=== PATIENT | male | born 1970 | race Hispanic/Latino ===

== ENCOUNTER 2017-09-29 11:02 | Emergency (ER) | payer BC ==
[2017-09-29 11:21] VITALS: BMI 22.9
[2017-09-29 11:26] VITALS: TEMP 98.1
--- NOTE | 2017-09-29 11:55 | ED PDOC ---
Arrival/HPI - General Chief Complaint: Trauma Time Seen by Provider: 09/29/17 11:18 Historian: Patient - History of Present Illness Narrative History of Present Illness (Text): 09/29/17 11:28 A 47 year old male, whose past medical history includes scoliosis, presents to the emergency department complaining of right hip and leg pain s/p fall. Patient reports he was touring a building and walking downstairs as he was viewing to ceiling lights. Patient missed a step and fell backwards 2 steps. States landing onto right side and rolled onto left side after attempting to grab hand railing to stop himself from falling. Patient denies any head trauma or LOC. Patient reports that he initially also had some L shoulder pain with movement but reports that that resolved this morning after a warm shower. PMD: Dr. Judd West Past Medical History - Provider Review Nursing Documentation Reviewed: Yes - Cardiac Hx Cardiac Disorders: Yes Other/Comment: Palpitations - Pulmonary Hx Respiratory Disorders: No - Neurological Hx Seizures: Yes (Last seizure at age 11) - HEENT Hx HEENT Disorder: No - Renal Hx Renal Disorder: No - Endocrine/Metabolic Hx Endocrine Disorders: No - Hematological/Oncological Hx Blood Disorders: No - Integumentary Hx Dermatological Disorder: No - Musculoskeletal/Rheumatological Hx Musculoskeletal Disorders: Yes Hx Falls: No Other/Comment: scoliosis - Gastrointestinal Hx Gastrointestinal Disorders: No - Genitourinary/Gynecological Hx Genitourinary Disorders: No - Psychiatric Hx Psychophysiologic Disorder: No Hx Substance Use: No - Surgical History Hx Tonsillectomy: Yes Other/Comment: adnoidectomy - Suicidal Assessment Feels Threatened In Home Enviroment: No Family/Social History - Physician Review Nursing Documentation Reviewed: Yes Family/Social History: No Known Family HX Smoking Status: Never Smoked Hx Alcohol Use: No Hx Substance Use: No Hx Substance Use Treatment: No Allergies/Home Meds Allergies/Adverse Reactions: Allergies No Known Allergies Allergy (Verified 09/29/17 11:21) Home Medications: Home Meds Medication Instructions Recorded Confirmed No Known Home Med 09/29/17 09/29/17 Review of Systems - Physician Review All systems were reviewed & negative as marked: Yes - Review of Systems Constitutional: absent: Fatigue, Weight Change, Other (no head trauma) Respiratory: absent: SOB Cardiovascular: absent: Chest Pain, Palpitations Gastrointestinal: absent: Abdominal Pain, Constipation, Diarrhea, Nausea, Vomiting Genitourinary Male: absent: Dysuria Musculoskeletal: Arthralgias, Other (right side hip and leg pain) Neurological: absent: Headache, Dizziness, Focal Weakness, Gait Changes, Other ( no LOC) Physical Exam Vital Signs Reviewed: Yes Vital Signs Temp Pulse Resp BP Pulse Ox 09/29/17 13:07 82 18 126/79 99 09/29/17 11:24 98.1 F 87 17 136/91 H 97 Temperature: Afebrile Blood Pressure: Normal Pulse: Regular Respiratory Rate: Normal Appearance: Positive for: Well-Appearing Pain Distress: None Mental Status: Positive for: Alert and Oriented X 3 - Systems Exam Head: Present: Atraumatic, Normocephalic Pupils: Present: PERRL Extroacular Muscles: Present: EOMI Conjunctiva: Present: Normal Mouth: Present: Moist Mucous Membranes Neck: Present: Normal Range of Motion Respiratory/Chest: Present: Clear to Auscultation, Good Air Exchange. No: Respiratory Distress, Accessory Muscle Use, Other (no chest wall tenderness) Cardiovascular: Present: Regular Rate and Rhythm, Normal S1, S2. No: Murmurs Abdomen: Present: Normal Bowel Sounds. No: Tenderness, Distention, Peritoneal Signs Back: Present: Paraspinal Tenderness (some paraspinal lumbar tenderness consistent with associated muscle spasms). No: CVA Tenderness, Midline Tenderness, Pain with Leg Raise Upper Extremity: Present: Normal Inspection, NORMAL PULSES, Neurovascularly Intact, Temperature Abnormalties. No: Normal ROM (no full ROM or strength), Tenderness, Swelling Lower Extremity: Present: Normal Inspection, NORMAL PULSES, Other (abrasion to right femur with scant tenderness; left leg normal inspection, no bony hip tenderness). No: Edema, CALF TENDERNESS, Normal ROM (no full ROM or strength ) , Swelling Neurological: Present: GCS=15, CN II-XII Intact, Speech Normal, Gait Normal Skin: Present: Warm, Dry, Normal Color. No: Rashes Psychiatric: Present: Alert, Oriented x 3, Normal Insight, Normal Concentration Medical Decision Making ED Course and Treatment: 09/29/17 11:32 Impression: 47 year old male with right hip and leg pain. Physical exam shows no midline tenderness to back, some paraspinal lumbar tenderness with associated muscle spasms; no bony tenderness to hips bilaterally; full ROM and strength with steady gait; no chest wall tenderness. Plan: -- Right Femur X-Ray -- Bilateral Hip X-Ray -- Toradol -- Reassess and disposition Progress Notes: 09/29/17 12:55 Xray negative for fracture. Only abrasion is to R leg, which was under pants that were not cut. No skin contact with metal. Refusing tetanus shot. 09/29/2017 13:12 Femur X-Ray IMPRESSION: Unremarkable radiographs fo the right femur. Dictator: Jaison Montenegro MD 09/29/2017 13:27 Hip/Pelvis X-Ray IMPRESSION: Unremarkable radiographs of the hips and pelvis. Dictator: Jaison Montenegro MD - RAD Interpretation Radiology Orders: 09/29/17 11:29 Femur Right [FEMUR MIN 2 VIEWS RT] [RAD] Stat HIP MIN 2V W/ PELVIS EDWARD [RAD] Stat - Medication Orders Current Medication Orders: Discontinued Medications Ketorolac Tromethamine (Toradol) 30 mg IM STAT STA Stop: 09/29/17 11:31 Last Admin: 09/29/17 11:40 Dose: 30 mg MAR Pain Assessment Document 09/29/17 11:40 GMD (Rec: 09/29/17 11:40 GMD [facility] [id number]) Pain Reassessment Is this a pain reassessment? No Sleep Is patient sleeping during reassessment? No Presence of Pain Presence of Pain Yes IM Administration Charges Document 09/29/17 11:40 GMD (Rec: 09/29/17 11:40 GMD [facility] [id number]) Injection Site MAR Injection Site Right Deltoid Charges for Administration # of IM Administrations 1 - Scribe Statement The provider has reviewed the documentation as recorded by the Starla Andres Provider Scribe Attestation: All medical record entries made by the Scribe were at my direction and personally dictated by me. I have reviewed the chart and agree that the record accurately reflects my personal performance of the history, physical exam, medical decision making, and the department course for this patient. I have also personally directed, reviewed, and agree with the discharge instructions and disposition. Disposition/Present on Arrival - Present on Arrival Any Indicators Present on Arrival: No History of DVT/PE: No History of Uncontrolled Diabetes: No Urinary Catheter: No History of Decub. Ulcer: No History Surgical Site Infection Following: None - Disposition Have Diagnosis and Disposition been Completed?: Yes Diagnosis: Hip pain, Leg abrasion Disposition: HOME/ ROUTINE Disposition Time: 12:57 Patient Plan: Discharge Condition: GOOD Discharge Instructions (ExitCare): Contusion in Adults (DC), Hip Contusion (ED) Additional Instructions: Follow-up with PMD within 2 days for further evaluation. Return to ED if condition worsens. Rest and ice. Motrin or tylenol for pain. Referrals: Judd West MD [Primary Care Provider] - Follow up with primary Forms: [email or web address] (Faroese), WORK NOTE
[2017-09-29 13:08] VITALS: BP 126/79; PULSE 82; RESP 18; O2SAT 99
--- NOTE | 2017-09-29 13:14 | RAD ---
PROCEDURE: Right Femur Radiographs. HISTORY: R femur pain after fall COMPARISON: None. TECHNIQUE: AP and Lateral Radiographs of the right femur. FINDINGS: FEMUR: Normal. No fracture. SOFT TISSUES: Normal. OTHER FINDINGS: None. IMPRESSION: Unremarkable radiographs of the right femur.
--- NOTE | 2017-09-29 13:29 | RAD ---
PROCEDURE: Radiographs of the pelvis and bilateral hips HISTORY: R hip pain after fall COMPARISON: None. FINDINGS: BONES: Pelvis: Unremarkable. Right hip:Unremarkable. Left hip:Unremarkable. JOINTS: Right hip: Unremarkable. Left hip: Unremarkable. Sacroiliac Joints: Unremarkable. Pubic symphysis: Unremarkable. SOFT TISSUES: Normal. OTHER FINDINGS: None. IMPRESSION: Unremarkable radiographs of the hips and pelvis.
== END 2017-09-29 13:09 | disposition home or self-care (01) ==
LOC: ED 11:02
DX: M25.551 Pain in right hip (principal); S80.811A Abrasion, right lower leg, initial encounter; W10.9XXA Fall (on) (from) unspecified stairs and steps, initial encounter; Y92.89 Other specified places as the place of occurrence of the external cause
CPT/HCPCS: 73521; 73552; 96372; 99285; J1885

== ENCOUNTER 2017-11-07 15:58 | Emergency (ER) | payer BC ==
[2017-11-07 15:58] VITALS: BMI 22.9
[2017-11-07 16:42] VITALS: RESP 18; TEMP 98.4
[2017-11-07 16:47] LABS: URINE BILIRUBIN NEGATIVE (NEGATIVE); URINE BLOOD TRACE-INTACT (NEGATIVE); URINE GLUCOSE (UA) NEGATIVE (NEGATIVE); URINE LEUKOCYTE ESTERASE NEGATIVE Leu/uL (NEGATIVE); URINE PROTEIN NEGATIVE mg/dL (<30 mg/dL); URINE UROBILINOGEN 0.2 E.U./dL (<1 E.U./dL)
--- NOTE | 2017-11-07 16:47 | ED PDOC ---
Arrival/HPI - General Historian: Patient - History of Present Illness Time/Duration: > week - General Chief Complaint: Back Pain Time Seen by Provider: 11/07/17 16:04 - History of Present Illness Narrative History of Present Illness (Text): 11/07/17 16:40 47M w/ pmhx of childhood scoliosis that presents w/ intermittent Right sided sharp burning low back pain that started 1 week ago. Pain has been progressively getting worse and is now a 6/10 that is consistent. Pain is better when supine and at rest, worse with walking. No previous episodes of pain like this in the past Denies recent trauma, incontinence, numbness/tingling in extremities, changes in bowel or bladder habits, blood in urine, pain or burning w/ urination, fevers , chills, chest pain, shortness of breath PMH: Splenic infarct PSH: Denies ALL: NKDA SocialHx: denies tobacco, etoh, recreational drug use (Benitot,[place]ong) Past Medical History - Provider Review Nursing Documentation Reviewed: Yes - Travel History Have you recently traveled outside [place] w/in the past 3 mons?: No - Infectious Disease Hx of Infectious Diseases: None - Cardiac Hx Cardiac Disorders: Yes Other/Comment: Palpitations - Pulmonary Hx Respiratory Disorders: No - Neurological Hx Seizures: Yes (Last seizure at age 11) - HEENT Hx HEENT Disorder: No - Renal Hx Renal Disorder: No - Endocrine/Metabolic Hx Endocrine Disorders: No - Hematological/Oncological Hx Blood Disorders: No - Integumentary Hx Dermatological Disorder: No - Musculoskeletal/Rheumatological Hx Musculoskeletal Disorders: Yes Hx Falls: No Other/Comment: scoliosis - Gastrointestinal Hx Gastrointestinal Disorders: No - Genitourinary/Gynecological Hx Genitourinary Disorders: No - Psychiatric Hx Psychophysiologic Disorder: No Hx Substance Use: No - Surgical History Hx Tonsillectomy: Yes Other/Comment: adnoidectomy - Anesthesia Hx Anesthesia: Yes Hx Anesthesia Reactions: No - Suicidal Assessment Feels Threatened In Home Enviroment: No Family/Social History - Physician Review Nursing Documentation Reviewed: Yes Family/Social History: Other (non-contributory) Smoking Status: Never Smoked Hx Alcohol Use: No Hx Substance Use: No Hx Substance Use Treatment: No Allergies/Home Meds Allergies/Adverse Reactions: Allergies No Known Allergies Allergy (Verified 09/29/17 11:21) Review of Systems - Physician Review All systems were reviewed & negative as marked: Yes - Review of Systems Constitutional: absent: Weight Change, Fevers, Night Sweats Eyes: absent: Vision Changes, Photophobia ENT: absent: Hearing Changes, Tinnitus Respiratory: absent: SOB, Cough Cardiovascular: absent: Chest Pain, Palpitations, Edema Gastrointestinal: absent: Abdominal Pain, Stool Changes Genitourinary Male: absent: Dysuria, Frequency, Hematuria, Urinary Output Changes Musculoskeletal: Back Pain (Right sided low back pain). absent: Neck Pain Skin: absent: Rash, Pruritis, Skin Lesions Neurological: absent: Headache, Dizziness, Focal Weakness Endocrine: absent: Diaphoresis Physical Exam Vital Signs Reviewed: Yes Temperature: Afebrile Blood Pressure: Normal Pulse: Regular Respiratory Rate: Normal Appearance: Positive for: Well-Appearing, Non-Toxic, Comfortable Pain Distress: None Mental Status: Positive for: Alert and Oriented X 3 - Systems Exam Head: Present: Atraumatic, Normocephalic Pupils: Present: PERRL Extroacular Muscles: Present: EOMI Conjunctiva: Present: Normal Mouth: Present: Moist Mucous Membranes Neck: Present: Normal Range of Motion Respiratory/Chest: Present: Clear to Auscultation, Good Air Exchange. No: Respiratory Distress, Accessory Muscle Use Cardiovascular: Present: Regular Rate and Rhythm, Normal S1, S2. No: Murmurs Abdomen: No: Tenderness, Distention, Peritoneal Signs, Guarding Back: Present: Normal Inspection, CVA Tenderness (Right side), Paraspinal Tenderness, Other (Negative Agustin, Negative SLR, Neagtive Bonnets- bilateral). No: Midline Tenderness, Pain with Leg Raise, Decubitus Ulcer Upper Extremity: Present: Normal Inspection. No: Edema Lower Extremity: Present: Normal Inspection. No: Edema, CALF TENDERNESS Neurological: Present: GCS=15. No: Speech Normal Skin: Present: Warm. No: Normal Color Psychiatric: Present: Alert, Oriented x 3 Vital Signs Temp Pulse Resp BP Pulse Ox 11/07/17 16:41 98.4 F 68 18 128/87 98 11/07/17 16:03 98.9 F 88 16 144/87 98 11/07/17 15:58 98.9 F 88 16 144/87 98 Medical Decision Making - Lab Interpretations I have reviewed the lab results: Yes Interpretation: No clinic. lab abnormalty - RAD Interpretation Transport Truck Driver: Radiologist ED Course and Treatment: 11/07/17 17:00 Seen and examined with the resident. Our history and physical exam reveals a gentleman complaining of approximately a one-week history of right lower back pain with radiation towards his right hip and groin. No injury or trauma. No abdominal pain nausea vomiting or diarrhea. No genitourinary symptoms. No fever or chills. He fell approximately 5 weeks ago with an injury to his right hip, but that has completely resolved. He does not appear to be in severe distress. ( Dewayne Velez) 11/07/17 16:54 Nephrolithiasis vs Lower Back Pain MSK somatic dysfunction CBC/CMP UA CT w/o contrast Pain control PRN Reassess and Dispo 11/07/17 18:03 CT scan shows no signs of nephrolithiasis WBC WNL No chemistry abnormalities UA- no signs of acute infection Cleared for discharge on flexeril and motrin follow up w/ PMD for further evaluation (Hong Pierre) - Lab Interpretations Narrative Lab Interpretation (Text): 11/07/17 18:05 WBC- WNL No chemistry abnormalities UA- no signs of active infection (Hong Pierre) Lab Results: 11/07/17 16:45 11/07/17 16:45 Lab Results 11/07/17 16:45: Sodium 143, Potassium 4.1, Chloride 102, Carbon Dioxide 31, Anion Gap 14, BUN 17, Creatinine 1.1, Est GFR ( Amer) > 60, Est GFR (Non- Af Amer) > 60, Random Glucose 98, Calcium 10.2, Total Bilirubin 0.4, AST 24, ALT 32, Alkaline Phosphatase 87, Total Protein 8.3, Albumin 4.3, Globulin 4.0, Albumin/Globulin Ratio 1.1 11/07/17 16:45: WBC 6.8, RBC 4.74, Hgb 14.7, Hct 43.9, MCV 92.6, MCH 31.0, MCHC 33.5, RDW 12.7, Plt Count 324, MPV 9.6, Gran % 70.9 H, Lymph % (Auto) 22.9, [place] % (Auto) 5.3, Eos % (Auto) 0.3 L, Baso % (Auto) 0.6, Gran # 4.82, Lymph # ( Auto) 1.6, [place] # (Auto) 0.4, Eos # (Auto) 0.0, Baso # (Auto) 0.04 11/07/17 16:31: Urine Color Light yellow, Urine Appearance Clear, Urine pH 6.0, Ur Specific [place] >= 1.030, Urine Protein Negative, Urine Glucose (UA) Negative, Urine Ketones Negative, Urine Blood Trace-intact H, Urine Nitrate Negative, Urine Bilirubin Negative, Urine Urobilinogen 0.2, Ur Leukocyte Esterase Negative, Urine RBC 2 - 5, Urine WBC 2 - 5, Ur Epithelial Cells 1 - 3, Calcium Oxalate Crystal Small, Urine Bacteria Many, Urine Other Mucus - RAD Interpretation Narrative RAD Interpretations (Text): LOWER THORAX: Unremarkable. LIVER: Unremarkable. No gross lesion or ductal dilatation. GALLBLADDER AND BILE DUCTS: Unremarkable. PANCREAS: Unremarkable. No gross lesion or ductal dilatation. SPLEEN: Unremarkable. ADRENALS: Unremarkable. No mass. KIDNEYS AND URETERS: Unremarkable. No hydronephrosis. No solid mass. Incidental finding(s): Simple cyst lower pole right kidney unchanged VASCULATURE: Unremarkable. No aortic aneurysm. BOWEL: Unremarkable. No obstruction. No gross mural thickening. APPENDIX: Unremarkable. Normal appendix. PERITONEUM: Unremarkable. No free fluid. No free air. LYMPH NODES: Unremarkable. No enlarged lymph nodes. BLADDER: Unremarkable. REPRODUCTIVE: Unremarkable. BONES: No acute fracture. Thoracolumbar scoliosis, secondary degenerative change at multiple levels. Unchanged compared to prior study. IMPRESSION: No acute findings related to/accounting for the clinical presentation. Additional benign and/or incidental findings described above. No significant interval change compared to the prior examination(s) (Hong Pierre) Radiology Orders: 11/07/17 16:33 ABD & PELVIS W/O PO OR IV CONT [CT] Stat - Medication Orders Current Medication Orders: Discontinued Medications Ketorolac Tromethamine (Toradol) 30 mg IVP STAT STA Stop: 11/07/17 16:34 Last Admin: 11/07/17 16:48 Dose: 30 mg NASH Pain Assessment Document 11/07/17 16:48 SRE (Rec: 11/07/17 16:48 SRE [id number]) Pain Reassessment Is this a pain reassessment? Yes Sleep Is patient sleeping during reassessment? No Presence of Pain Presence of Pain Yes Pain Scale Used Pain Scale Used Numeric Location Upper or Lower Lower Pain Location Body Site Back Description Description Constant IVP Administration Document 11/07/17 16:48 SRE (Rec: 11/07/17 16:48 SRE [id number]) Charges for Administration # of IVP Administrations 1 - PA / [employer] / Resident Statement / has reviewed & agrees with the documentation as recorded. / has examined the patient and agrees with the treatment plan. Disposition/Present on Arrival - Present on Arrival Any Indicators Present on Arrival: No History of DVT/PE: No History of Uncontrolled Diabetes: No Urinary Catheter: No History of Decub. Ulcer: No History Surgical Site Infection Following: None - Disposition Have Diagnosis and Disposition been Completed?: Yes Disposition Time: 18:05 Patient Plan: Discharge - Disposition Diagnosis: Lower back pain Disposition: HOME/ ROUTINE Patient Problems: Current Active Problems Problem Status Onset Lower back pain Acute Condition: STABLE Discharge Instructions (ExitCare): Low Back Pain (DC) Additional Instructions: Thank you for letting us take care of you today. You were treated for MSK lower back pain. The emergency medical care you received today was directed at your acute symptoms. If you were prescribed any medication, please fill it and take as directed. It may take several days for your symptoms to resolve. Return to the Emergency Department if your symptoms worsen, do not improve, or if you have any other problems. CT scan of ABD and Pelvis shows no new or Acute changes in the Kidneys or spine. Please contact your doctor or call one of the physicians/clinics you have been referred to that are listed on the Patient Visit Information form that is included in your discharge packet. Bring any paperwork you were given at discharge with you along with any medications you are taking to your follow up visit. Our treatment cannot replace ongoing medical care by a primary care provider (PCP) outside of the emergency department. Thank you for allowing the [facility] team to be part of your care today. Prescriptions: Cyclobenzaprine [Flexeril] 5 mg PO TID PRN #30 tab PRN Reason: Pain, Moderate (4-7) Ibuprofen [Motrin Tab] 800 mg PO Q8 PRN #15 tab PRN Reason: Pain, Moderate (4-7) Referrals: Judd West MD [Primary Care Provider] - Follow up with primary Forms: [employer] (Bulgarian)
[2017-11-07 16:49] LABS: URINE APPEARANCE CLEAR (CLEAR); URINE COLOR LIGHT YELLOW (YELLOW)
[2017-11-07 17:05] LABS: BASO # 0.04 K/mm3 (0.0-2.0); BASO % 0.6 % (0.0-3.0); EOS % 0.3 % (1.5-5.0); GRAN # 4.82 (1.4-6.5); GRAN % 70.9 % (50.0-68.0); HEMOGLOBIN 14.7 g/dL (14.0-18.0); LYMPH # 1.6 (1.2-3.4); LYMPH % 22.9 % (22.0-35.0); MEAN CELL VOLUME 92.6 fl (80.0-105.0); MEAN CORPUSCULAR HGB CONC 33.5 g/dl (31.0-37.0); MEAN PLATELET VOLUME 9.6 fl (7.0-11.0); MONO # 0.4 (0.1-0.6); MONO % 5.3 % (1.0-6.0); RBC 4.74 10^6/uL (3.5-6.1); RED CELL DISTRIBUTION WIDTH 12.7 % (11.5-14.5); WHITE BLOOD COUNT 6.8 10^3/ul (4.5-11.0)
[2017-11-07 17:19] LABS: ALB/GLOB RATIO 1.1 (1.1-1.8); ALBUMIN 4.3 g/dL (3.0-4.8); ALT/SGPT 32 U/L (7-56); AST/SGOT 24 U/L (17-59); BLOOD UREA NITROGEN 17 mg/dL (7-21); CALCIUM 10.2 mg/dL (8.4-10.5); GFR AFRICAN-AMERICAN > 60; GFR NON-AFRICAN AMERICAN > 60
[2017-11-07 17:36] LABS: URINE BACTERIA MANY (NEG)
--- NOTE | 2017-11-07 17:39 | CT ---
PROCEDURE: CT Abdomen and Pelvis without intravenous contrast HISTORY: Right side LBP COMPARISON: 11/13/2013 CT abdomen and pelvis TECHNIQUE: Technique. Contrast Dose: Radiation dose: Total exam DLP = Total exam DLP = mGy-cm. This CT exam was performed using one or more of the following dose reduction techniques: Automated exposure control, adjustment of the mA and/or kV according to patient size, and/or use of iterative reconstruction technique. FINDINGS: LOWER THORAX: Unremarkable. LIVER: Unremarkable. No gross lesion or ductal dilatation. GALLBLADDER AND BILE DUCTS: Unremarkable. PANCREAS: Unremarkable. No gross lesion or ductal dilatation. SPLEEN: Unremarkable. ADRENALS: Unremarkable. No mass. KIDNEYS AND URETERS: Unremarkable. No hydronephrosis. No solid mass. Incidental finding(s): Simple cyst lower pole right kidney unchanged VASCULATURE: Unremarkable. No aortic aneurysm. BOWEL: Unremarkable. No obstruction. No gross mural thickening. APPENDIX: Unremarkable. Normal appendix. PERITONEUM: Unremarkable. No free fluid. No free air. LYMPH NODES: Unremarkable. No enlarged lymph nodes. BLADDER: Unremarkable. REPRODUCTIVE: Unremarkable. BONES: No acute fracture. Thoracolumbar scoliosis, secondary degenerative change at multiple levels. Unchanged compared to prior study. OTHER FINDINGS: None. IMPRESSION: No acute findings related to/accounting for the clinical presentation. Additional benign and/or incidental findings described above. No significant interval change compared to the prior examination(s).
[2017-11-07 17:53] LABS: URINE CALCIUM OXALATE CRYSTALS SMALL /hpf
[2017-11-07 18:24] VITALS: BP 135/89; PULSE 64; O2SAT 97
== END 2017-11-07 18:24 | disposition home or self-care (01) ==
LOC: ED 15:58
DX: M54.5 Low back pain (principal)
CPT/HCPCS: 74176; 80053; 81001; 85025; 96374; 99284; J1885